=== PATIENT | male | born 1955 | race Two or more races ===

== ENCOUNTER 2024-03-29 07:13 | Day surgery (SDC) | payer OTHER ==
[2024-03-26 10:29] LABS: URINE APPEARANCE Clear; URINE BILIRRUBIN Negative (NEGATIVE); URINE BLOOD Negative; URINE COLOR Yellow; URINE GLUCOSE Negative (NEGATIVE); URINE KETONE Negative (NEGATIVE); URINE LEUKOCYTE Negative; URINE NITRATE Negative; URINE PROTEIN Negative (NEGATIVE); URINE UROBILINOGEN 0.2 E.U./dl
[2024-03-26 10:34] LABS: URINE BACTERIA 6.2 uL (0.0-1933); URINE RBC 7.9 uL (0.0-20.8)
[2024-03-26 10:39] LABS: URINE EPITHELIAL CELLS 0.6 uL (0.0-38.8)
[2024-03-26 10:42] LABS: HEMOGLOBIN 15.1 g/dL (13-16.00); MEAN CELL VOLUME 83.5 fL (80.0-100.00); PLATELET COUNT 183 K/uL (150-450); RED BLOOD COUNT 5.04 M/uL (4.00-6.00); RED CELL DISTRIBUTION WIDTH 14.2 % (11.5-14.5)
[2024-03-26 10:58] LABS: INR 1.08; PARTIAL THROMBOPLASTIN TIME 28.8 SECONDS (22.0-34.0)
[2024-03-26 11:00] LABS: CALCIUM 9.4 mg/dL (8.5-10.1); CREATININE SERUM 0.82 mg/dL (0.70-1.30); PHOSPHOROUS 2.9 mg/dL (2.5-4.9); POTASSIUM 3.9 mEq/L (3.5-5.1)
[2024-03-26 11:02] LABS: PROTHROMBIN TIME 11.3 SECONDS (9.0-11.5)
[2024-03-29] MEDS ORDERED: CEFAZOLIN SODIUM 1,000 MG VIAL ONE (10:38)
[2024-03-29] MEDS ORDERED: POVIDONE-IODINE 118 ML BOTT TOP ONE (13:27)
[2024-03-29] MEDS ORDERED: LIDOCAINE HCL 1%/EPINEPHRINE 20ML VIAL IJ ONE ×2 (13:28→14:30)
[2024-03-29] MEDS ORDERED: EPINEPHRINE HCL/PF 1 MG/ML AMPUL ONE (13:40)
[2024-03-29] MEDS ORDERED: CEFAZOLIN SODIUM 1,000 MG in 0.9 % SODIUM CHLORIDE 50 ML IV ONE (14:30)
[2024-03-29] MEDS ORDERED: CIPROFLOXACIN HCL 0.175 MG/DR DROPS OTIC ONE (14:30)
[2024-03-29] MEDS ORDERED: EPINEPHRINE HCL/PF 1 MG/ML AMPUL IR ONE (14:30)
[2024-03-29] MEDS ORDERED: POVIDONE-IODINE 118 ML BOTT TP ONE (14:30)
[2024-03-29] MEDS ORDERED: DEXAMETHASONE SODIUM PHOSPHATE 4 MG/ML VIAL ONE (15:12)
[2024-03-29] MEDS ORDERED: CEPHALEXIN500 M1 PO (15:38)
[2024-03-29] MEDS ORDERED: CIPROFLOXACIN2.5 ML OTIC (15:38)
[2024-03-29] MEDS ORDERED: DEXAMETHASONE SODIUM PHOSPHATE 4 MG/ML VIAL IV ONE (15:45)
== END 2024-03-29 17:40 | disposition home or self-care (01) ==
LOC: CIR.AMB 07:13
PROVIDERS: ATTEND Otolaryngology Otology & Neurotology
DX: H72.01 Central perforation of tympanic membrane, right ear (principal); H90.11 Conductive hearing loss, unilateral, right ear, with unrestricted hearing on the contralateral side; R06.81 Apnea, not elsewhere classified; F41.9 Anxiety disorder, unspecified; H52.209 Unspecified astigmatism, unspecified eye